=== PATIENT | female | born 1940 | race Hispanic/Latino ===

== ENCOUNTER 2017-07-26 10:49 | Emergency (ER) | payer OTHER ==
[2017-07-26] MEDS ORDERED: LORAZEPAM 1 MG TABLET ONE (11:08)
[2017-07-26] MEDS ORDERED: OCTYL 2-CYANOACRYLATE 1 EACH TP ONE (12:07)
== END 2017-07-26 12:15 | disposition home or self-care (01) ==
LOC: EDH 10:49
DX: S01.21XA Laceration without foreign body of nose, initial encounter (principal); S80.02XA Contusion of left knee, initial encounter; E78.5 Hyperlipidemia, unspecified; R01.1 Cardiac murmur, unspecified; Z98.890 Other specified postprocedural states; W18.39XA Other fall on same level, initial encounter; Y93.01 Activity, walking, marching and hiking; Y92.89 Other specified places as the place of occurrence of the external cause; Y99.8 Other external cause status
CPT/HCPCS: 12011; 70450; 73562

== ENCOUNTER 2018-08-30 12:26 | Emergency (ER) | payer OTHER | END 2018-08-30 13:16 | disposition home or self-care (01) | LOC: EDH 12:26 | DX: L30.9 Dermatitis, unspecified (principal); E78.5 Hyperlipidemia, unspecified ==